=== PATIENT | female | born 2000 | race Caucasian/White ===

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

== ENCOUNTER 2020-03-07 21:46 | Emergency (ER) | payer OTHER ==
[~2020-03-07] VITALS: Ht 157.5 cm; Wt 113.0 kg
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
[2020-03-07] MEDS ORDERED: ACETAMINOPHEN 500 MG TABLET PO ONE (22:00)
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
[2020-03-07 23:08] VITALS: BP 149/75
== END 2020-03-07 23:08 | disposition home or self-care (01) ==
LOC: ER 21:46
DX: S89.92XA Unspecified injury of left lower leg, initial encounter (principal); R51.9 Headache, unspecified; F41.9 Anxiety disorder, unspecified; F32.9 Major depressive disorder, single episode, unspecified; V49.59XA Passenger injured in collision with other motor vehicles in traffic accident, initial encounter; Y93.89 Activity, other specified; Y92.89 Other specified places as the place of occurrence of the external cause; Y99.8 Other external cause status
CPT/HCPCS: 70450; 71045; 72125; 73562; 99285-25

== ENCOUNTER 2021-03-13 19:23 | Emergency (ER) | payer MEDICAID, OTHER ==
[~2021-03-13] VITALS: Ht 157.5 cm; Wt 113.0 kg
[2021-03-13 19:48] VITALS: BP 100/72
--- NOTE | 2021-03-13 19:57 | PHYS DOC ---
Past History Past Medical History: Depression Past Surgical History: Tonsillectomy Additional Past Surgical Histo: tonsillectomy, adenoidectomy, bilateral ear tubes Smoking: Non-smoker Alcohol Use: None Drug Use: None Adult General Chief Complaint Chief Complaint: GENERALIZED BODY ACHES HPI HPI Patient is an otherwise healthy 20-year-old female who presents with nasal congestion and body aches for the last couple of days. States her boyfriend was diagnosed with the flu a couple of days ago. States she is able to eat and drink. States he is making urine and stool normally for her. States she took some Tylenol a couple hours ago mild relief. Denies recent traumas, travels, fevers, chest pain, shortness of breath, abdominal pain, nausea, vomiting, diarrhea. Review of Systems Review of Systems Review of systems otherwise unremarkable except noted in HPI Allergies Allergies Allergies Coded Allergies Type Severity Reaction Last Updated Verified No Known Drug Allergies 03/13/21 No Physical Exam Physical Exam Constitutional: Well developed, well nourished, no acute distress, non-toxic appearance. [] HENT: Normocephalic, atraumatic, bilateral external ears normal, bilateral tympanic membranes normal, oropharynx moist, no oral exudates, nose normal. [] Eyes: conjunctiva normal, no discharge. [] Neck: Normal range of motion, no tenderness, supple, no stridor. [] Cardiovascular:Heart rate regular rhythm, no murmur [] Lungs & Thorax: Bilateral breath sounds clear to auscultation [] Neurologic: Alert and oriented X 3, normal motor function, normal sensory function, no focal deficits noted. [] Psychologic: Affect normal, judgement normal, mood normal. [] Current Patient Data Vital Signs Vital Signs Date Time Temp Pulse Resp B/P (MAP) Pulse Ox O2 Delivery O2 Flow Rate FiO2 03/13/21 19:48 99.8 115 18 100/72 (81) 98 EKG EKG [] Radiology/Procedures Radiology/Procedures [] Heart Score C/O Chest Pain: No Risk Factors: Risk Factors: DM, Current or recent (<one month) smoker, HTN, HLP, family history of CAD, obesity. Risk Scores: Risk Factors: DM, Current or recent (<one month) smoker, HTN, HLP, family history of CAD, obesity. Course & Med Decision Making Course & Med Decision Making Patient is a 20-year-old female who presents with exposure to the flu and flulike symptoms Vital signs not concerning. Physical exam noted above. Given Benadryl. Discussed symptomatic management at home. Covid swab pending. Advised to follow-up in the morning with primary care physician. Gave return precautions to the ED. Date Covid education and quarantine instructions. Patient grateful, verbalized understanding and agreed with plan of discharge. [] Dragon Disclaimer Dragon Disclaimer This electronic medical record was generated, in whole or in part, using a voice recognition dictation system. Departure Departure: Impression: Primary Impression: Viral syndrome Disposition: HOME / SELF CARE / HOMELESS Condition: GOOD Referrals: PCP,ROMAN (PCP) GURU ESPINOSA Patient Instructions: Viral Syndrome Additional Instructions: Fever coming into the emergency department tonight and allowing us to take care of you. Please read the attached information carefully to go over the things we discussed. Please continue a Tylenol and Benadryl regimen as we discussed. Please stay well-hydrated. Please take your vitamins. Please be sure to eat at least 3 nutritious meals a day. Please follow-up in the morning with your primary care physician update on your ED visit and set up a follow-up. Please be sure to read carefully the Covid education and quarantine instructions. You have been tested for or diagnosed with COVID-19. It is an infection caused by a new type of coronavirus. COVID-19 will cause cold-like or mild flu symptoms in most. It can cause more severe symptoms like problems breathing in some. There is no treatment for COVID-19. The body will clear the infection over time. Self-care will help to ease discomfort. Steps to Take: Self-Care Rest as needed. Healthy habits may help you feel better. Steps include: Choose healthy foods including fruits and vegetables. Drink water throughout the day. Get plenty of sleep each night. If you smoke, try to quit. It may ease breathing. Avoid alcohol. Keep Others Healthy The virus can spread to others. Droplets are released every time you sneeze or cough. The droplets can get into the mouth, nose, or eyes of people near you and lead to infection. To lower the chances of spreading COVID-19 to others: Stay at home until your doctor has said it is safe to leave. If you tested positive this will mean staying isolated until both of the following are true: At least 7 days have passed since the start of illness. You are free of fever for at least 72 hours without the use of medicine. During this time: - Avoid public areas, events, or transportation. Do not return to work or school until your doctor has said it is safe to do so. - Call ahead if you need to go to a medical center. Let them know you may have COVID-19. It will help them guide you where to go. They may also ask you to wear a facemask when you come to the office. - If you call for emergency medical services, let them know you may have COVID- 19. While at home: - Try to avoid close contact with others. Stay about 6 feet away. - If possible, spend most of your time in a separate room from others. - Use a face mask if you will be in close contact with others such as sharing a room or vehicle. - Have someone wipe down common surfaces in the home. Use household freight car cleaner every day on areas like doorknobs, counters, or sinks. - Cough or sneeze into a tissue. Throw the tissue away right after use. If a tissue is not available, cough or sneeze into your elbow. - Wash your hands often. Wash them after sneezing or coughing. Use soap and water and wash for at least 20 seconds. Alcohol based hand mercury cell cleaner can be used if soap and water is not available. - Do not prepare food for others. Avoid sharing personal items like forks, spoons, or toothbrushes. - Avoid close contact with pets while you are sick. There is no evidence of the virus passing to pets. This is a safety step until more is known about this virus. Isolation can be frustrating. Social interaction can help. Keep in touch with friends and family through phone and tech options. You can still interact with others in your home, just keep a safe distance of about 6 feet. Follow-up: Your doctors office will check in with you to see if there are any changes in your health. You may be asked to keep track of symptoms to share with them. They will also let you know when you are clear to be in public again. Problems to Look Out For: Contact your doctor if your recovery is not going as you expect. Get emergency care if you have problems such as: - Trouble breathing - Nonstop chest pain or pressure - Changes in awareness, confusion, or problems waking - Lips or face have bluish color - Worsening of symptoms If you think you have an emergency, call for emergency medical services right away. As taken from [facility] MD Mar 13, 2021 19:57
[2021-03-13] MEDS ORDERED: diphenhydrAMINE HCL 25 MG CAPSULE PO ONE ×2 (19:58→20:00)
--- NOTE | 2021-03-14 16:33 | NUR ---
IP: Informed pt of positive covid test and the need to quarantine for 10 days. Pt verbalized understanding.
== END 2021-03-13 20:05 | disposition home or self-care (01) ==
LOC: ER 19:23
DX: O98.512 Other viral diseases complicating pregnancy, second trimester (principal); U07.1 COVID-19; B34.9 Viral infection, unspecified; Z3A.15 15 weeks gestation of pregnancy
CPT/HCPCS: 99283; C9803; Q0163; U0003

== ENCOUNTER 2021-03-16 08:18 | Emergency (ER) | payer MEDICAID ==
[~2021-03-16] VITALS: Ht 157.5 cm; Wt 113.0 kg
[2021-03-16 08:28] VITALS: BP 138/72
[2021-03-16] MEDS ORDERED: DEXAMETHASONE 4 MG TABLET PO ONE (09:30)
[2021-03-16] MEDS ORDERED: AMOX1TAB61 PO (09:39)
--- NOTE | 2021-03-16 09:39 | PHYS DOC ---
Past History Past Medical History: Depression Past Surgical History: Tonsillectomy Additional Past Surgical Histo: tonsillectomy, adenoidectomy, bilateral ear tubes Smoking: Non-smoker Alcohol Use: None Drug Use: None General Adult EDM: Chief Complaint: EARACHE/EAR PAIN HPI: HPI: Patient is a 20 year old female who presents for right ear pain since last night. She states she woke up from the pain. She notes some congestion that she has had since yesterday. She notes she has a history of multiple ear infections and had tubes placed as a child. Patient is currently COVID+ and was swabbed 5 days ago. She has received her influenza vaccine but not her COVID vaccine. She is also 15 weeks . Review of Systems: Review of Systems: Constitutional: Denies fever or chills Eyes: Denies redness or eye pain HENT: Positive for right ear pain, nasal congestion Respiratory: Positive for cough, denies shortness of breath Cardiovascular: Denies chest pain or palpitations GI: Denies abdominal pain, nausea, or vomiting Neurologic: Denies headache or focal weakness Complete systems were reviewed and found to be within normal limits, except as documented in this note. Current Medications: Current Meds: Current Medications Medications (Trade) Dose Ordered Sig/Jacqueline Start Time Stop Time Status Last Admin Dose Admin Acetaminophen (Tylenol) 500 mg 1X ONCE 03/16/21 09:45 03/16/21 09:46 UNV Amoxicillin/ Clavulanate Potassium (Augmentin 875/ 125mg) 1 tab 1X ONCE 03/16/21 09:45 03/16/21 09:46 UNV Dexamethasone (Decadron) 10 mg 1X ONCE 03/16/21 09:30 03/16/21 09:31 UNV Allergies: Allergies: Allergies Coded Allergies Type Severity Reaction Last Updated Verified No Known Drug Allergies 03/13/21 No Physical Exam: PE: Constitutional: Well developed, well nourished, no acute distress, non-toxic appearance HENT: Normocephalic, atraumatic, Right ear shows swelling and inflammation of ear canal, right TM erythematous, purulence behind right TM, left ear shows scar tissue but is otherwise unremarkable Eyes: Conjunctiva normal, no discharge Neck: Normal range of motion, supple Lungs & Thorax: No respiratory distress, equal chest rise and fall Skin: Warm, dry Extremities: No tenderness, no edema Neurologic: Alert and oriented X 3, no focal deficits noted Psychologic: Affect normal, judgment normal Current Patient Data: Vital Signs: Vital Signs Date Time Temp Pulse Resp B/P (MAP) Pulse Ox O2 Delivery O2 Flow Rate FiO2 03/16/21 08:28 98.2 96 18 138/72 (94) 98 Room Air EKG: EKG: [] Radiology/Procedures: Radiology/Procedures: [] Heart Score: C/O Chest Pain: N/A Course & Med Decision Making: Course & Med Decision Making Patient presented with one day of right ear pain. On exam right TM was erythematous with purulent material behind it. Left ear was unremarkable. Patient afebrile in the ED. She was given a dose of Dexamethasone and Tylenol and sent with a prescription for Amoxicillin to treat her infection. Patient stable for discharge with outpatient follow-up with PCP. Discussed findings and plan with patient, who acknowledges understanding and agreement. COVID-19 CRITERIA: The patient was evaluated during the global COVID-19 pandemic, and that diagnosis was suspected/considered upon their initial presentation. Their evaluation, treatment and testing was consistent with current guidelines for patients who present with complaints or symptoms that may be related to COVID-19. Dragon Disclaimer: Dragon Disclaimer: This electronic medical record was generated, in whole or in part, using a voice recognition dictation system. Departure Departure: Impression: Primary Impression: Otitis media Qualified Codes: H66.90 - Otitis media, unspecified, unspecified ear Additional Impressions: Qualified Codes: Z3A.15 - 15 weeks gestation of COVID-19 Disposition: HOME / SELF CARE / HOMELESS Condition: STABLE Referrals: PCP,NO (PCP) Patient Instructions: Otitis Media, Adult, [id number] Additional Instructions: Take tylenol as needed for pain or discomfort. You have been tested for or diagnosed with COVID-19. It is an infection caused by a new type of coronavirus. COVID-19 will cause cold-like or mild flu symptoms in most. It can cause more severe symptoms like problems breathing in some. There is no treatment for COVID-19. The body will clear the infection over time. Self-care will help to ease discomfort. Steps to Take: Self-Care Rest as needed. Healthy habits may help you feel better. Steps include: Choose healthy foods including fruits and vegetables. Drink water throughout the day. Get plenty of sleep each night. If you smoke, try to quit. It may ease breathing. Avoid alcohol. Keep Others Healthy The virus can spread to others. Droplets are released every time you sneeze or cough. The droplets can get into the mouth, nose, or eyes of people near you and lead to infection. To lower the chances of spreading COVID-19 to others: Stay at home until your doctor has said it is safe to leave. If you tested positive this will mean staying isolated until both of the following are true: At least 7 days have passed since the start of illness. You are free of fever for at least 72 hours without the use of medicine. During this time: - Avoid public areas, events, or transportation. Do not return to work or school until your doctor has said it is safe to do so. - Call ahead if you need to go to a medical center. Let them know you may have COVID-19. It will help them guide you where to go. They may also ask you to wear a facemask when you come to the office. - If you call for emergency medical services, let them know you may have COVID- 19. While at home: - Try to avoid close contact with others. Stay about 6 feet away. - If possible, spend most of your time in a separate room from others. - Use a face mask if you will be in close contact with others such as sharing a room or vehicle. - Have someone wipe down common surfaces in the home. Use household horse buyer e very day on areas like doorknobs, counters, or sinks. - Cough or sneeze into a tissue. Throw the tissue away right after use. If a tissue is not available, cough or sneeze into your elbow. - Wash your hands often. Wash them after sneezing or coughing. Use soap and water and wash for at least 20 seconds. Alcohol based hand paper cleaner can be used if soap and water is not available. - Do not prepare food for others. Avoid sharing personal items like forks, spoons, or toothbrushes. - Avoid close contact with pets while you are sick. There is no evidence of the virus passing to pets. This is a safety step until more is known about this virus. Isolation can be frustrating. Social interaction can help. Keep in touch with friends and family through phone and tech options. You can still interact with others in your home, just keep a safe distance of about 6 feet. Follow-up: Your doctors office will check in with you to see if there are any changes in your health. You may be asked to keep track of symptoms to share with them. They will also let you know when you are clear to be in public again. Problems to Look Out For: Contact your doctor if your recovery is not going as you expect. Get emergency care if you have problems such as: - Trouble breathing - Nonstop chest pain or pressure - Changes in awareness, confusion, or problems waking - Lips or face have bluish color - Worsening of symptoms If you think you have an emergency, call for emergency medical services right away. As taken from [facility] Amoxicillin/Potassium Clav (AUGMENTIN 875-125 TABLET) 1 Each Tablet 1 TAB PO BID for Otitis Media for 7 Days, #14 TAB 0 Refills Prov: COLLETTE HILL DO 03/16/21 COVID-19 Assessment COVID-19 Patient Risks: Age 65 or older: No Sign of co-morbidity: No Exp to person + for COVID: Yes (tested positive) Exp to PUI: No Travel from affected area: No Lower respiratory symptoms: No Fever: No Other: Yes PPE Use: Full PPE with N95 mask or PAPR: Yes COLLETTE HILL DO Mar 16, 2021 09:39
[2021-03-16] MEDS ORDERED: ACETAMINOPHEN 500 MG TABLET PO ONE (09:45)
[2021-03-16] MEDS ORDERED: AMOXICILLIN/K CLAV 875/125MG TABLET. PO ONE (09:45)
== END 2021-03-16 09:52 | disposition home or self-care (01) ==
LOC: ER 08:18
DX: O98.512 Other viral diseases complicating pregnancy, second trimester (principal); U07.1 COVID-19; H66.91 Otitis media, unspecified, right ear; Z3A.15 15 weeks gestation of pregnancy
CPT/HCPCS: 99284; J8540

== ENCOUNTER 2021-03-19 22:41 | Emergency (ER) | payer MEDICAID ==
[~2021-03-19] VITALS: Ht 157.5 cm; Wt 114.9 kg
--- NOTE | 2021-03-19 22:47 | PHYS DOC ---
Past History Past Medical History: Depression Past Surgical History: Tonsillectomy Additional Past Surgical Histo: tonsillectomy, adenoidectomy, bilateral ear tubes Smoking: Non-smoker Alcohol Use: None Drug Use: None General Adult HPI: HPI: ".. I was here for an ear infection on .. been on antibiotics..for it.. but I was positive for COVID on the .. '.. I did want to get the COVID vaccination. I probably got it from my boyfriend.. he had COVID.. [facility] want me to start a daily baby aspirin.. but when I read the bottle it said not too.. so I didn't.. " Patient is a 20 year old female who presents with above hx and complaints dyspnea . Pt. COVID + on . Pt on and Amoxicillin for ottis. Patient does not smoke or use drugs. Patient has no history of coagulopathy with family or herself. Patient estimated to be 16 weeks . Follows at [facility]. Does also psych she plans to deliver at. Patient has not been taking aspirin as directed by her OB. Patient does not use MDI. No recent travel. No history of immunosuppression. This is patient's first . Review of Systems: Review of Systems: Constitutional: Denies fever or chills Eyes: Denies change in visual acuity HENT: Denies nasal congestion or sore throat Respiratory: Denies cough or shortness of breath Cardiovascular: Denies chest pain or edema GI: Denies abdominal pain, nausea, vomiting, bloody stools or diarrhea : Denies dysuria Musculoskeletal: Denies back pain or joint pain Integument: Denies rash Neurologic: Denies headache, focal weakness or sensory changes Endocrine: Denies polyuria or polydipsia Lymphatic: Denies swollen glands Psychiatric: Denies depression or anxiety Family History: Family History: Noncontributory Current Medications: Current Meds: See nursing for home meds Allergies: Allergies: Allergies Coded Allergies Type Severity Reaction Last Updated Verified No Known Drug Allergies 03/13/21 No Physical Exam: PE: Constitutional: Moderate acute distress, non-toxic appearance. [] HENT: Normocephalic, atraumatic, bilateral external ears normal, injected TM, oropharynx moist, no oral exudates, nose normal. [] Eyes: PERRLA, EOMI, conjunctiva normal, no discharge. [] Neck: Normal range of motion, no tenderness, supple, no stridor. [] Cardiovascular: Tachycardia heart rate regular rhythm, no murmur [] Lungs & Thorax: Bilateral breath sounds to apex with scattered wheezes auscultation [] saturation is 97% on room air Abdomen: Bowel sounds normal, soft, no tenderness, no masses, no pulsatile masses. heart rate 140- 150s Skin: Warm, dry, no erythema, no rash. [] Back: No tenderness, no CVA tenderness. [] Extremities: No tenderness, no cyanosis, no clubbing, ROM intact, no edema. No cording. Neurologic: Alert and oriented X 3, normal motor function, normal sensory function, no focal deficits noted. DTRs +2 patella and brachial. Psychologic: Affect anxious, judgement normal, mood normal. [] EKG: EKG: [] Radiology/Procedures: Radiology/Procedures: Patient declines CT of chest at this time. Risk and benefits discussed reference pulmonary embolisms Heart Score: C/O Chest Pain: N/A HEART Score for Chest Pain: HEART Score for Chest Pain Response (Comments) Value History Slighlty/Non-Suspicious 0 ECG Normal 0 Age < 45 0 Risk Factors 1 or 2 Risk Factors 1 Total 1 Risk Factors: Risk Factors: DM, Current or recent (<one month) smoker, HTN, HLP, family history of CAD, obesity. Risk Scores: Score 0 - 3: 2.5% MACE over next 6 weeks - Discharge Home Score 4 - 6: 20.3% MACE over next 6 weeks - Admit for Clinical Observation Score 7 - 10: 72.7% MACE over next 6 weeks - Early Invasive Strategies Course & Med Decision Making: Course & Med Decision Making Pertinent Labs and Imaging studies reviewed. (See chart for details) Patient use MDI 2 puffs 4 times a day. Take a daily baby aspirin. Practice incentive spirometry. Keep follow-up will be. Return if any concerns. Self isolate. May take Tylenol for pain. Marked fever may do showers and baths can help control fever Impression: 1. Gravid 16 weeks 2. + COVID- 03/11. [] Lexi Disclaimer: Lexi Disclaimer: This electronic medical record was generated, in whole or in part, using a voice recognition dictation system. Departure Departure: Referrals: PCP,ROMAN (PCP) Lexi Disclaimer This chart was dictated in whole or in part using Voice Recognition software in a busy, high-work load, and often noisy Emergency Department environment. It may contain unintended and wholly unrecognized errors or omissions. DEONNA RAMIREZ MD Mar 19, 2021 22:47
[2021-03-19 22:50] VITALS: BP 134/56
[2021-03-19] MEDS ORDERED: ASPIRIN ENTERIC COATED 81 MG TABLET.DR. PO ONE (23:13)
[2021-03-19] MEDS ORDERED: ALBUTEROL SULFATE 8GM INHALER. INH ONE (23:30)
[2021-03-19] MEDS ORDERED: ASPIRIN CHEWABLE 81 MG TABLET. PO ONE (23:30)
== END 2021-03-19 23:50 | disposition home or self-care (01) ==
LOC: ER 22:41
DX: O98.512 Other viral diseases complicating pregnancy, second trimester (principal); U07.1 COVID-19; Z3A.16 16 weeks gestation of pregnancy
CPT/HCPCS: 94640; 99283; 94664

== ENCOUNTER 2021-03-22 23:34 | Emergency (ER) | payer MEDICAID ==
[~2021-03-22] VITALS: Ht 157.5 cm; Wt 112.8 kg
--- NOTE | 2021-03-22 23:52 | PHYS DOC ---
Past History Past Medical History: Depression Additional Past Medical Histor: COVID + 03/21 Past Surgical History: Tonsillectomy Additional Past Surgical Histo: tonsillectomy, adenoidectomy, bilateral ear tubes Smoking: Non-smoker Alcohol Use: None Drug Use: None General Adult EDM: Chief Complaint: SHORTNESS OF BREATH HPI: HPI: ".. I am still short of breath... " Patient is a 20 year old female who presents with above hx of COVID + since and 16 weeks Gravid. Patient continues complain of dyspnea. Patient does agree to a plain film. Patient's still continues to refuse CT of chest for pulmonary embolism. Patient has not been doing adequate incentive spirometry. Patient has completed her course of Augmentin. No recent travel. No specific ill contacts. [facility]. Patient taking her Tylenol as needed for discomfort. Patient used MDI 2 puffs -4 times a day. Is now taking her daily baby aspirin. Patient is taking her vitamins. Boyfriend recently had COVID pneumonia.. Review of Systems: Review of Systems: Constitutional: Denies fever or chills Eyes: Denies change in visual acuity HENT: Denies nasal congestion or sore throat Respiratory: Complains of dyspnea Cardiovascular: Denies chest pain or edema GI: Denies abdominal pain, nausea, vomiting, bloody stools or diarrhea : Denies dysuria Musculoskeletal: Denies back pain or joint pain Integument: Denies rash Neurologic: Denies headache, focal weakness or sensory changes Endocrine: Denies polyuria or polydipsia Lymphatic: Denies swollen glands Psychiatric: Denies depression or anxiety Family History: Family History: Noncontributory Current Medications: Current Meds: See nursing for home meds Allergies: Allergies: Allergies Coded Allergies Type Severity Reaction Last Updated Verified No Known Drug Allergies 03/19/21 No Physical Exam: PE: Constitutional: Moderate acute distress, non-toxic appearance. [] HENT: Normocephalic, atraumatic, bilateral external ears normal, oropharynx moist, no oral exudates, nose normal. [] Eyes: PERRLA, EOMI, conjunctiva normal, no discharge. [] Neck: Normal range of motion, no tenderness, supple, no stridor. [] Cardiovascular:Heart rate regular rhythm, no murmur [] Lungs & Thorax: Bilateral breath sounds equal at apex with scattered wheezes on auscultation [] Abdomen: Bowel sounds normal, soft, no tenderness, no masses, no pulsatile masses. Gravid Back: No tenderness, no CVA tenderness. [] Extremities: No tenderness, no cyanosis, no clubbing, ROM intact, no edema. No cording. Neurologic: Alert and oriented X 3, normal motor function, normal sensory function, no focal deficits noted. [] DTRs +2 patella and brachial Psychologic: Affect anxious, judgement normal, mood normal. [] EKG: EKG: [] Radiology/Procedures: Radiology/Procedures: No CXR reading at 0627 hrs. -See formal report when available My interpretation shows patchy infiltrate bilateral bases atelectasis. No obvious lobular consolidations. Overall appearance is consistent with viral pneumonia. [] Heart Score: C/O Chest Pain: N/A Risk Factors: Risk Factors: DM, Current or recent (<one month) smoker, HTN, HLP, family history of CAD, obesity. Risk Scores: Score 0 - 3: 2.5% MACE over next 6 weeks - Discharge Home Score 4 - 6: 20.3% MACE over next 6 weeks - Admit for Clinical Observation Score 7 - 10: 72.7% MACE over next 6 weeks - Early Invasive Strategies Course & Med Decision Making: Course & Med Decision Making Pertinent Labs and Imaging studies reviewed. (See chart for details) Patient use MDI 2 puffs 4 times a day. Take Tylenol as needed for discomfort. Take a daily baby aspirin. Use incentive spirometry. Follow-up with primary care. Return if any concerns. Continue vitamins. Take Zithromax 250 a day. Impression: 1. COVID infection 2. Gravid 16 weeks. [] Dragon Disclaimer: Lexi Disclaimer: This electronic medical record was generated, in whole or in part, using a voice recognition dictation system. Departure Departure: Referrals: PCP,NO (PCP) Scripts Azithromycin (ZITHROMAX) 250 Mg Tablet 250 MG PO DAILY for ANTI-BIOTIC, #5 TAB 0 Refills Prov: DEONNA RAMIREZ MD 03/23/21 Lexi Disclaimer This chart was dictated in whole or in part using Voice Recognition software in a busy, high-work load, and often noisy Emergency Department environment. It may contain unintended and wholly unrecognized errors or omissions. Dragon Disclaimer This chart was dictated in whole or in part using Voice Recognition software in a busy, high-work load, and often noisy Emergency Department environment. It may contain unintended and wholly unrecognized errors or omissions. DEONNA RAMIREZ MD Mar 22, 2021 23:51
[2021-03-23] MEDS ORDERED: ALBUTEROL SULFATE 8GM INHALER. INH ONE (00:30)
[2021-03-23] MEDS ORDERED: AZITHROMYCIN 250 MG TABLET. PO ONE (00:30)
[2021-03-23 01:50] LABS: BILIRUBIN,URINE MOD (NEG); CLARITY,URINE CLEAR; COLOR,URINE YELLOW; GLUCOSE,URINE NEG (NEG)
[2021-03-23 01:51] LABS: BACTERIA,URINE 0 /HPF (0-FEW); NITRITE,URINE POS (NEG)
[2021-03-23] MEDS ORDERED: AZIT250T PO (01:59)
[2021-03-23 02:19] VITALS: BP 107/55
--- NOTE | 2021-03-23 06:28 | RAD ---
EXAM: CHEST ONE VIEW. HISTORY: Shortness of breath, COVID-19. COMPARISON: 03/07/2020. FINDINGS: A frontal view of the chest is obtained. The inspiration is small. There are airspace infiltrates in both bases. There is no pneumothorax or p leural effusion. The heart is not enlarged. IMPRESSION: 1. Bibasilar infiltrates consistent with atypical pneumonia. Electronically signed by: Ana Laura Obrien MD (03/23/2021 6:25 AM) [facility]
== END 2021-03-23 02:20 | disposition home or self-care (01) ==
LOC: ER 23:34
DX: O98.512 Other viral diseases complicating pregnancy, second trimester (principal); U07.1 COVID-19; Z3A.16 16 weeks gestation of pregnancy
CPT/HCPCS: 71045; 81001; 87086; 94640; 99284; G0238; 94664